=== PATIENT | male | born 1950 | race Caucasian/White ===

== ENCOUNTER 2022-12-31 13:56 | Emergency (ER) | payer MEDICARE, OTHER ==
[~2022-12-31] VITALS: Ht 170.2 cm; Wt 72.7 kg
[~2022-12-31 13:56] MED LIST: ASPIRIN E.C. 8181 MG PO; CARAFATE S1 GM/10 ML PO; PEPCID 20MG TAB20 MG PO; PLAVIX 75MG TAB75 MG PO; PRAVACHOL 20MG20 MG PO; PRINIVIL40 MG PO; PROCARDIA XL 3030 MG PO; PROTONIX 40MG T40 MG PO; PROTONIX20 MG PO
[2022-12-31 14:05] VITALS: TEMP 98.1
[2022-12-31 15:21] LABS: HEMOGLOBIN 10.9 g/dl (13.5-18.0); MEAN CELL VOLUME 84 fl (80.0-100.0); MEAN CORPUSCULAR HEMOGLOBIN 28 pg (27-31); MEAN CORPUSCULAR HGB CONC 33 g/dl (33.0-37.0); MEAN PLATELET VOLUME 9.6 fl (7.4-10.4); PLATELET COUNT 99 K/mm3 (130-400); REDCELL DISTRIBUTION WIDTH-CV 13.8 % (11.5-14.5)
[2022-12-31 15:24] LABS: HEMATOCRIT 32.7 % (42.0-52.0)
[2022-12-31 15:48] LABS: ALANINE AMINOTRANSFERASE 13 U/L (0-55); ALBUMIN 3.5 gm/dL (3.4-4.8); ALKALINE PHOSPHATASE 102 U/L (40-150); ANION GAP 10 mmol/L (7-16); AST,SGOT 16 U/L (5-34); BILIRUBIN,TOTAL 0.3 mg/dL (0.2-1.2); BLOOD UREA NITROGEN 6 mg/dL (8-26); CALCIUM 8.9 mg/dL (8.4-10.2); CARBON DIOXIDE 20 mmol/L (23-31); CHLORIDE 92 mmol/L (98-107); CREATININE, serum 0.79 mg/dL (0.72-1.25); GLUCOSE 92 mg/dL (70-99); POTASSIUM 4.3 mmol/L (3.5-4.5); SODIUM 122 mmol/L (136-145); TOTAL PROTEIN 6.9 gm/dL (6.2-8.1)
[2022-12-31 16:03] LABS: TROPONIN-I < 0.010 ng/mL (0.00-0.033)
[2022-12-31 16:05] LABS: BAND 23 % (0-10); LYMPHOCYTE 12 % (20.0-51.0); NEUTROPHILS 55 % (42.0-75.2)
[2022-12-31 16:06] LABS: COLLECTION METHOD CLEAN CATCH
[2022-12-31 16:06] LABS: PLATELET ESTIMATE DECREASED (NORMAL)
[2022-12-31 16:11] LABS: MUCOUS Present (NOT PRESENT); SQUAMOUS EPITHELIAL None Seen /hpf (0-10); URINE BACTERIA None Seen /hpf (NONE SEEN); URINE RBC 0-2 /hpf (0-2)
[2022-12-31 16:13] LABS: URINE APPEARANCE Clear (CLEAR/HAZY); URINE COLOR Amber (YELLOW); URINE GLUCOSE Negative (NEGATIVE); URINE KETONE 2+ (NEGATIVE); URINE PROTEIN(semi-quant) 1+ (NEGATIVE)
[2022-12-31 16:14] LABS: URINE BLOOD TRACE-INTACT (NEGATIVE); URINE NITRATE Negative (NEGATIVE); URINE UROBILINOGEN 0.2 E.U/dL (0.2-1.0)
[2022-12-31 17:12] VITALS: BP 164/93; PULSE 87
[2023-01-03] MEDS ORDERED: PLAVIX 75MG TAB75 MG PO (11:24)
== END 2022-12-31 17:13 | disposition home or self-care (01) ==
LOC: COL.ER 13:56
PROVIDERS: Emergency Medicine
DX: R06.02 Shortness of breath (principal); E86.0 Dehydration; E87.1 Hypo-osmolality and hyponatremia; C67.9 Malignant neoplasm of bladder, unspecified; D61.818 Other pancytopenia; E87.8 Other disorders of electrolyte and fluid balance, not elsewhere classified; R79.81 Abnormal blood-gas level; F17.210 Nicotine dependence, cigarettes, uncomplicated; Z28.310 Unvaccinated for COVID-19; Z87.19 Personal history of other diseases of the digestive system; Z98.890 Other specified postprocedural states
CPT/HCPCS: J7030